=== PATIENT | male | born 1935 | race Caucasian/White ===

== ENCOUNTER 2021-12-02 07:20 | Emergency (ER) | payer MEDICARE, SELFPAY ==
--- NOTE | ~2021-12-02 | XR_ITS ---
EXAMINATION: CR X-RAY HAND AND WRIST LEFT CLINICAL INFORMATION: Left wrist pain status post fall. COMPARISON: None TECHNIQUE: 4 views of the left hand and wrist were obtained. Indicator arrow points to the fifth digit. FINDINGS: Mild to moderate interphalangeal, first carpal metacarpal and triscaphe degenerative joint changes are seen with hypertrophic changes seen most pronounced in the distal interphalangeal joint of the second digit as well as the proximal interphalangeal joint of the fifth digit. There is no overt acute fracture or dislocation. The carpal bones are normally aligned. The distal radius and ulna are intact with the soft tissues are unremarkable. XR/XR hand wrist LT IMPRESSION: [id number] degenerative joint changes most consistent with osteoarthritis. No overt acute fracture.
--- NOTE | ~2021-12-02 | CT_ITS ---
EXAMINATION: CT CERVICAL SPINE WITHOUT CONTRAST CLINICAL INFORMATION: Neck pain status post injury. COMPARISON: None TECHNIQUE: Multiple axial images of the cervical spine were obtained without the administration of intravenous contrast. Coronal and sagittal reformatted images were obtained. This CT examination was performed using dose optimization techniques as appropriate, variously including the following: *Automated exposure control *Adjustment of mA and/or kV according to patient size (this includes techniques or standardized protocols for targeted exams where dose is matched to indication/reason for exam; i.e. extremities or head) *Use of iterative reconstruction technique DLP: 315.81 mGy-cm FINDINGS: There is mild reversal the normal cervical lordosis with apex at C3-C4. Mild to moderate multilevel degenerative disc disease is seen most pronounced from C4-C5 to C6-C7. The vertebral bodies are intact. Mild multilevel bilateral neural foraminal narrowing is seen at these levels as well. Mild to moderate bilateral facet arthropathy is seen. The spinous processes are intact. The odontoid process is intact with moderate articular degenerative changes. The soft tissues are unremarkable. There is no lymphadenopathy. The thyroid gland is unremarkable. The visualized lung apices are clear. CT/CT cervical spine wo con IMPRESSION: 1. Mild reversal the normal cervical lordosis may be secondary to positioning, muscle spasm and/or multilevel degenerative changes. No definitive acute abnormality.
--- NOTE | ~2021-12-02 | XR_ITS ---
EXAMINATION: XR HAND, RIGHT CLINICAL INFORMATION: Right hand pain status post finger injury. COMPARISON: None TECHNIQUE: PA, lateral, and oblique views of the right hand. FINDINGS: Mild to moderate interphalangeal, fifth metacarpal phalangeal and first carpometacarpal degenerative joint changes are seen. Hypertrophic changes are seen most pronounced in the proximal interphalangeal joint of the first digit and first carpal metacarpal joint. There is an acute-appearing, nondisplaced fracture at the medial base of the distal phalanx of the fifth digit extending into the distal interphalangeal joint space. There is fragmentation of an osteophyte at the proximal interphalangeal joint with corticated appearance. The The soft tissues are unremarkable. XR/XR hand RT 2V IMPRESSION: 1. Acute, nondisplaced fracture at the base of the distal phalanx of the fifth digit as detailed above. 2. Degenerative joint changes most consistent with osteoarthritis and prominent hypertrophic changes at the proximal interphalangeal joint of the fifth digit. A fragmented osteophyte does not demonstrate acute features. Correlate with physical exam.
--- NOTE | ~2021-12-02 | CT_ITS ---
EXAMINATION: CT HEAD WITHOUT CONTRAST CLINICAL INFORMATION: Head injury. COMPARISON: None TECHNIQUE: Contiguous axial imaging was performed from the skull base to vertex without intravenous administration of contrast. Coronal and sagittal reformatted images were obtained. This CT examination was performed using dose optimization techniques as appropriate, variously including the following: *Automated exposure control *Adjustment of mA and/or kV according to patient size (this includes techniques or standardized protocols for targeted exams where dose is matched to indication/reason for exam; i.e. extremities or head) *Use of iterative reconstruction technique DLP: 732.23 mGy-cm FINDINGS: There is mild widening of the cortical sulci and associated ventriculomegaly. The lateral ventricles are symmetrical. The third and fourth ventricles are in their normal midline position. The basilar and prepontine cisterns are unremarkable. Incidental prominent posterior fossa CSF space dorsally. There is no acute intra or extracerebral abnormality. There is no mass effect or midline shift. Sections through the bony calvarium are unremarkable. The orbits are intact. The paranasal sinuses show mild mucosal thickening in the ethmoid sinuses bilaterally. The mastoid air cells are clear. Mild mid nasal septal deviation, apex the left with small apical spur. CT/CT head/brain wo con IMPRESSION: No acute intracranial pathology.
[2021-12-02 07:56] VITALS: BP 135/73; PULSE 74; RESP 16; TEMP 36.6; O2SAT 96; BMI 24.3
--- NOTE | 2021-12-02 08:04 | ED.GENADULT ---
HPI - General Adult General Chief complaint: Fall Stated complaint: Fall/L hand inj Time Seen by Provider: 12/02/21 07:55 Source: patient Mode of arrival: ambulatory Limitations: no limitations History of Present Illness HPI narrative: Patient is a 86 year old male presenting to the emergency department today with left wrist pain after a trip and fall incident. Patient states that he tripped over a piece of pipe sticking up from the ground and landed on his left hand, and scuffed his head. Patient denies any loss of consciousness from the incident. Patient denies any dizziness, lightheadedness, abdominal pain, nausea, vomiting, fever, chills, blurry vision, double vision, loss of vision, chest pain, difficulty breathing, shortness of breath, back pain, night sweats, pain with urination, increased urinary frequency, increased urinary urgency, blood in his urine or stool, syncope or a near syncopal episode, bowel incontinence, bladder incontinence, bowel retention, bladder retention, or any other complaints at this time. Onset (ago): minute(s) Location: face, left and upper extremity Radiation: non-radiation Severity: mild Severity scale (1-10): 2 Quality: dull Pain Consistency: constant Relieving factors: none Exacerbating factors: none Associated symptoms: denies other symptoms Treatments prior to arrival: none Related Data Allergies Allergy/AdvReac Type Severity Reaction Status Date / Time No Known Allergies Allergy Verified 12/02/21 08:01 Review of Systems Constitutional: Constitutional: Reports no additional constitutional complaints, Denies chills, Denies fever(s) and Denies night sweats Eyes: Eyes: Reports no additional eye complaints, Denies blurry vision, Denies change in vision, Denies diplopia, Denies eye discharge, Denies loss of vision and Denies eye pain ENT: Denies dizziness Cardiovascular: Cardiovascular: Reports no additional cardiovascular complaints, Denies chest pain, Denies lightheadedness, Denies Loss of Consciousness and Denies dyspnea Respiratory: Respiratory: Reports no additional respiratory complaints and Denies dyspnea Gastrointestinal: Gastrointestinal: Reports no additional gastrointestinal complaints, Denies abdominal pain, Denies melena, Denies hematochezia, Denies change in bowel habits and Denies change in stool character Genitourinary: Genitourinary: Reports no additional male genitourinary complaints, Denies hematuria, Denies oliguria, Denies difficulty urinating, Denies dysuria, Denies urinary frequency, Denies urinary hesitancy, Denies urinary incontinence and Denies urinary urgency Musculoskeletal: Musculoskeletal: Reports no additional musculoskeletal complaints, Denies numbness and Denies tingling Comments: right 5th finger pain Integumentary/Breasts: Comments: abrasions to the left hand Neurologic: Denies dizziness, Denies loss of vision, Denies numbness and Denies tingling Psychiatric: Psychiatric: Reports no additional psychiatric complaints Endocrine: Endocrine: Reports no additional endocrine complaints Hematologic/Lymphatic: Hematologic/Lymphatic: Reports no additional hematologic/lymphatic complaints Allergic/Immunologic: Allergic/Immunologic: Reports no additional allergic/immunologic complaints [facility] Past Medical History Attestation statement: The following information was validated with the patient. Source: old records reviewed Social History Social History Advance Directives: Yes Advance Directives Information Provided: Yes Advance Directives on File: No Physical Exam ED Vital Signs: Vital Signs - 24 hr 12/02/21 07:56 Temperature 97.8 F Pulse Rate 74 Respiratory Rate 16 Blood Pressure 135/73 Pulse Oximetry 96 Oxygen Delivery Method Room Air BMI result Body Mass Index 24.3 Const General: cooperative, no acute distress, alert and awake Nutritional Appearance: well nourished Orientation/consciousness: patient oriented x3 Limitations: no limitations HENMT Head: Yes normal to inspection and Yes atraumatic Ears: hearing grossly normal bilaterally and external ears normal General nose exam: Normal external nose present, no nasal discharge noted and no epistaxis Face and sinus: Yes normal facial exam, No abrasion and No laceration Mouth: Normal oral and palatal mucosa present, no drooling and no muffled voice Eyes General: appearance normal, both eyes and all related structures Periorbital: periorbital findings normal Eyelids: Yes eyelids normal Conjunctivae: conjunctivae normal Pupils: Equal, round and reactive pupils present EOM: EOMs intact bilaterally Neck Neck: Yes normal visual inspection, Yes full ROM and Yes no lymphadenopathy Chest Chest palpation & inspection: normal inspection of the chest Resp Effort & Inspection: normal respiratory effort and able to speak in complete sentences Auscultation: clear to auscultation bilaterally Cardio Rate: regular rate Rhythm: regular rhythm GI Inspection: Yes normal to inspection Skin Other: multiple abrasions to the left hand but on the dorsal and palmar aspects of his left hand, no open areas, no active bleeding Neuro General: patient oriented x3 and moves all extremities Cranial nerves: Yes Equal, round and reactive pupils present Cognition (Neuro): normal cognition Motor exam (neuro): 5/5 motor strength present throughout Sensory Exam: Normal double simultaneous stimulation for sensation Coordination: [id number] test normal Extrem Other: mild bruising and pain to the right 5th finger General: Yes full ROM and Yes capillary refill normal Psych Appearance: grossly normal Mental Status: mental status grossly normal Affect: normal affect Attitude: cooperative Thought process: Normal thought process present Thought content: Normal thought content present Insight: Good insight present (Psych) Procedures Orthopedic Splinting/Casting Injury #1: Side: right Upper Extremity Injury Location: finger (5th) Upper Extremity Immobilizer: aluminum form splint, finger (other) and freddie tape Medical Decision Making MDM Narrative Medical decision making narrative: Patient is an 86 year old male presenting to the emergency department today with left hand pain and right 5th finger pain. Patient's physical exam was as listed earlier in this chart with multiple abrasions to the left hand and minimal bruising to the right 5th finger. Patient's left hand and wrist x-rays showed no acute process. Patient's right hand XR showed an acute fracture of the 5th finger. Patient's head and neck CTs had no acute process. I explained my physical exam findings as well as all test results to the patient. I answered all questions asked by the patient. Patient was brought up to date on tetanus and his right 5th finger was splinted, without incident. I stressed the importance of the patient taking his medication as prescribed. I stressed the importance of the patient following up with his primary care provider and an orthopedic provider. I stressed the importance of the patient returning to the emergency department immediately if his symptoms were to worsen or if he were to develop any dizziness, shortness of breath, difficulty breathing, chest pain, blurry vision, loss of vision, nausea, vomiting, abdominal pain, fever, chills, back pain, or any other complaints. Patient verbalized agreement and understanding with this treatment plan and discharge. Differential Diagnosis Differential Diagnosis: Right 5th finger fracture, fall Medical Records Medical records reviewed: Yes I reviewed the patient's medical records. Imaging Data CT C-Spine: My impression: No acute process. Radiologist's impression: EXAMINATION: CT CERVICAL SPINE WITHOUT CONTRAST CLINICAL INFORMATION: Neck pain status post injury.? COMPARISON: None? TECHNIQUE: Multiple axial images of the cervical spine were obtained without the administration of intravenous contrast. Coronal and sagittal reformatted images were obtained.? This CT examination was performed using dose optimization techniques as appropriate, variously including the following: *Automated exposure control *Adjustment of mA and/or kV according to patient size (this includes techniques or standardized protocols for targeted exams where dose is matched to indication/reason for exam; i.e. extremities or head) *Use of iterative reconstruction technique DLP: 315.81 mGy-cm FINDINGS: There is mild reversal the normal cervical lordosis with apex at C3-C4. Mild to moderate multilevel degenerative disc disease is seen most pronounced from C4-C5 to C6-C7. The vertebral bodies are intact. Mild multilevel bilateral neural foraminal narrowing is seen at these levels as well. Mild to moderate bilateral facet arthropathy is seen. The spinous processes are intact. The odontoid process is intact with moderate articular degenerative changes. The soft tissues are unremarkable. There is no lymphadenopathy. The thyroid gland is unremarkable. The visualized lung apices are clear. CT/CT cervical spine wo con IMPRESSION: 1. Mild reversal the normal cervical lordosis may be secondary to positioning, muscle spasm and/or multilevel degenerative changes. No definitive acute abnormality. Dictated By: Preet Puri MD Signed By: Electronically signed by Preet Puri MD 12/02/[address] scan - head: Attestation: I personally reviewed and interpreted this imaging study as follows: My impression: No acute process. Radiologist's impression: EXAMINATION: CT HEAD WITHOUT CONTRAST CLINICAL INFORMATION: Head injury.? COMPARISON: None TECHNIQUE: Contiguous axial imaging was performed from the skull base to vertex without intravenous administration of contrast. Coronal and sagittal reformatted images were obtained. This CT examination was performed using dose optimization techniques as appropriate, variously including the following: *Automated exposure control *Adjustment of mA and/or kV according to patient size (this includes techniques or standardized protocols for targeted exams where dose is matched to indication/reason for exam; i.e. extremities or head) *Use of iterative reconstruction technique DLP: 732.23 mGy-cm FINDINGS: There is mild widening of the cortical sulci and associated ventriculomegaly. The lateral ventricles are symmetrical. The third and fourth ventricles are in their normal midline position. The basilar and prepontine cisterns are unremarkable. Incidental prominent posterior fossa CSF space dorsally. There is no acute intra or extracerebral abnormality. There is no mass effect or midline shift. Sections through the bony calvarium are unremarkable. The orbits are intact. The paranasal sinuses show mild mucosal thickening in the ethmoid sinuses bilaterally. The mastoid air cells are clear. Mild mid nasal septal deviation, apex the left with small apical spur. CT/CT head/brain wo con IMPRESSION: No acute intracranial pathology. Dictated By: Preet Puri MD Signed By: Electronically signed by Preet Puri MD 12/02/21 0906 Left hand and wrist X-ray: Attestation: I personally reviewed and interpreted this imaging study as follows: My impression: No acute process. Radiologist's impression: EXAMINATION: CR X-RAY HAND AND WRIST LEFT CLINICAL INFORMATION: Left wrist pain status post fall.? COMPARISON: None? TECHNIQUE: 4 views of the left hand and wrist were obtained. Indicator arrow points to the fifth digit. FINDINGS: Mild to moderate interphalangeal, first carpal metacarpal and triscaphe degenerative joint changes are seen with hypertrophic changes seen most pronounced in the distal interphalangeal joint of the second digit as well as the proximal interphalangeal joint of the fifth digit.? There is no overt acute fracture or dislocation. The carpal bones are normally aligned. The distal radius and ulna are intact with the soft tissues are unremarkable. XR/XR hand wrist LT IMPRESSION: [id number] degenerative joint changes most consistent with osteoarthritis. No overt acute fracture. Dictated By: Preet Puri MD Signed By: Electronically signed by Preet Puri MD 12/02/21 0850 Right hand x-ray: Attestation: I personally reviewed and interpreted this imaging study as follows: My impression: Acute fracture of the 5th finger. Radiologist's impression: EXAMINATION: XR HAND, RIGHT CLINICAL INFORMATION: Right hand pain status post finger injury.? COMPARISON: None? TECHNIQUE: PA, lateral, and oblique views of the right hand. FINDINGS: Mild to moderate interphalangeal, fifth metacarpal phalangeal and first carpometacarpal degenerative joint changes are seen. Hypertrophic changes are seen most pronounced in the proximal interphalangeal joint of the first digit and first carpal metacarpal joint. There is an acute-appearing, nondisplaced fracture at the medial base of the distal phalanx of the fifth digit extending into the distal interphalangeal joint space. There is fragmentation of an osteophyte at the proximal interphalangeal joint with corticated appearance. The The soft tissues are unremarkable. XR/XR hand RT 2V IMPRESSION: 1. Acute, nondisplaced fracture at the base of the distal phalanx of the fifth digit as detailed above. 2. Degenerative joint changes most consistent with osteoarthritis and prominent hypertrophic changes at the proximal interphalangeal joint of the fifth digit. A fragmented osteophyte does not demonstrate acute features. Correlate with physical exam. Dictated By: Preet Puri MD Signed By: Electronically signed by Preet Puri MD 12/02/21 1203 Discharge Plan Discharge Clinical Impression: Fall Patient Disposition: Home, Self-Care Instructions: Finger Fracture (ED), Fall Prevention (ED) Additional Instructions: Follow up with your primary care provider. Return to the emergency department immediately if your symptoms worsen or if you develop any dizziness, shortness of breath, difficulty breathing, chest pain, blurry vision, loss of vision, nausea, vomiting, abdominal pain, fever, chills, back pain, or any other complaints. Referrals: [facility] [Provider Group] Adiel Vasquez MD [Primary Care Provider] - Interventions: ED Discharge Assessment Last Done: 12/02/21 10:54 Discharge Date/Time: 12/02/21 10:55 Print Language: Greek
[2021-12-02] MEDS: Diphth,Pertus(ACell),Tet Adult 0.5 ML SYRINGE IM (10:42)
== END 2021-12-02 10:55 | disposition home or self-care (01) ==
PROVIDERS: Emergency Provider Emergency Medicine; PCP Internal Medicine
DX: S62.666A Nondisplaced fracture of distal phalanx of right little finger, initial encounter for closed fracture (principal); S60.512A Abrasion of left hand, initial encounter; W18.09XA Striking against other object with subsequent fall, initial encounter; Y93.01 Activity, walking, marching and hiking; Y92.480 Sidewalk as the place of occurrence of the external cause; Y99.9 Unspecified external cause status
CPT/HCPCS: 29130; 70450; 72125; 73110; 73120; 73130; 90471; 90715; 99283; 99284

== ENCOUNTER 2021-12-16 07:53 | Outpatient (REF) | payer MEDICARE, SELFPAY ==
--- NOTE | ~2021-12-16 | XR_ITS ---
EXAMINATION: XR HAND, RIGHT CLINICAL INFORMATION: Pain in right hand. COMPARISON: None TECHNIQUE: PA, lateral, and oblique views of the right hand. FINDINGS: There is loss of joint space with periarticular spurring of the PIP and DIP all digits. There is minimal flexion deformities of DIP joints 3rd through 5th digits. There is a small non-displaced fracture involving an osteophyte of the PIP joint of the 5th digit. There is severe degenerative spurring and there are arthritic changes. Mild soft tissue swelling is seen along the PIP and DIP joints. Also visualized is loss of the 1st carpometacarpal joint space. XR/XR hand RT min 3V IMPRESSION: Advanced degenerative osteoarthritic changes of the PIP and DIP joints of the 1st carpometacarpal joint. There is a small nondisplaced fracture involving an osteophyte of the PIP joint, 5th digit.
== END 2021-12-16 07:54 | disposition home or self-care (01) ==
LOC: HO.HOSX 07:53
PROVIDERS: Visit Provider Physician Assistant
DX: S61.214A Laceration without foreign body of right ring finger without damage to nail, initial encounter (principal)
CPT/HCPCS: 73130; 99202

== ENCOUNTER 2024-09-16 10:48 | Outpatient (AMB) | payer MEDICARE, SELFPAY ==
--- NOTE | 2024-09-16 10:49 | MHC.PC.OV ---
Vital Signs 09/16/24 10:53 Height 5 ft 8 in Weight 163 lb BMI 24.8 BP 142/70 H Respiration 16 Pulse 86 Pulse Source Pulse Oximeter Temp 97.6 F Temp Source Temporal Artery Scan Pulse Oximetry (%) 97 Oxygen Delivery Method Room Air Intake Visit Reasons: establish care Spinning Machine Operator Required: No Accompanied by: Self / Same As Patient Allergies No Known Allergies Allergy (Verified 09/16/24 11:27) Medication List - Last Reconciled 09/16/24 by Wm Metz MD atorvastatin 20 mg PO DAILY diltiazem HCl CD 120 mg PO DAILY famotidine 20 mg PO BID finasteride 5 mg PO DAILY gabapentin mg PO loratadine (Allergy Relief (loratadine)) 10 mg PO BID riboflavin (vitamin B2) 400 mg PO DAILY tamsulosin 0.8 mg PO DAILY Tobacco use date assessed: 09/16/24 Fall risk assessment: No Falls in past year Last assessed Fall Risk: 09/16/24 Dental Screening Dental Screen Date: 09/16/24 Did you have a dental visit in the last 12 months?: Yes Did you have a dental problem in the last 6 months where you did not have access to dental care?: No Was dental information given to patient?: Patient has dentist [facility] Medical History (Updated 09/16/24 @ 11:26 by Wm Metz MD) Hyperlipidemia Arthritis Family History (Updated 09/16/24 @ 11:00 by REINA Dasilva) Father Heart attack Mother Deaf Arthritis Social History (Updated 09/16/24 @ 11:00 by REINA Dasilva) Housing: Apartment Alcohol intake: current Alcohol intake frequency: holidays/special occasions only Patient Tobacco Use Status: Never used Tobacco service: No Current occupational status: retired Cognitive needs: No Hearing needs: Yes (b/l hearing aids) Vision needs: Yes (rx glasses) Questionnaire PHQ-9 Over the last 2 weeks, how often have you been bothered by any of the following problems? 1. Little interest or pleasure in doing things: not at all 2. Feeling down, depressed, or hopeless: not at all 3. Trouble falling or staying asleep, or sleeping too much: not at all 4. Feeling tired or having little energy: not at all 5. Poor appetite or overeating: not at all 6. Feeling bad about yourself - or that you are a failure or have let yourself or your family down: not at all 7. Trouble concentrating on things, such as reading the newspaper or watching television: not at all 8. Moving or speaking so slowly that other people could have noticed. Or the opposite - being so fidgety or restless that you have been moving around a lot more than usual: not at all 9. Thoughts that you would be better off or of hurting yourself in some way: not at all Total score: 0 Depression Screening Interpretation: Negative Depression Screening Done: Yes Source: Developed by Drs. Ananda Marie, Teresa Macias, Montana Aguirre and colleagues, with an educational marco antonio from [employer]. Thrive Questionnaire Date Thrive assessed: 09/16/24 I am a: Patient What is your living situation today?: I have a steady place to live Within the past 12 months, did the food you bought not last and you didn't have the money to get more?: Never true Within the past 12 months, did you worry whether your food would run out before you got money to buy more?: Never true Do you have trouble paying for medicines?: No Do you have trouble getting transportation to medical appointments?: No Do you have trouble paying your heating and electricity bill?: No Do you have trouble taking care of your child, family member or friend?: No Do you have trouble with day-to-day activities such as bathing, preparing meals, shopping, managing finances, etc.?: No Are you currently unemployed and looking for a job?: No Are you interested in more education?: No Please select the resources that you would like help with: None Currently or been in a relationship where the following occur: No concerns reported THRIVE Score: 0 AUDIT C Alcohol Use Questionnaire (AUDIT-C) 1. How often do you have a drink containing alcohol?: Monthly or less 2. How many drinks containing alcohol do you have on a typical day when you are drinking?: 1 or 2 3. How often do you have six or more drinks on one occasion?: Never Total Score: 1 ABDULAZIZ-7 AMB Questionnaire ABDULAZIZ-7 Date ABDULAZIZ - 7 assessed: 09/16/24 Feeling nervous, anxious, or on edge: 0 = Not at all Not being able to stop or control worryin = Not at all Worrying too much about different things: 0 = Not at all Trouble relaxin = Not at all Being so restless that it is hard to sit still: 0 = Not at all Becoming easily annoyed or irritable: 0 = Not at all Feeling afraid as if something awful might happen: 0 = Not at all Total ABDULAZIZ-7 score (0-4 normal; 5-9 mild; 10-14 moderate; 15-21 severe): 0 Source: Developed by Drs. Ananda Marie, Teresa Macias, Montana Aguirre and colleagues, with an educational marco antonio from [employer]. Physical exam (Primary Care) Vital Signs: Last Vital Signs Temp 97.6 F 09/16/24 10:53 Pulse 86 09/16/24 10:53 Resp 16 09/16/24 10:53 BP 142/70 H 09/16/24 10:53 Pulse Ox 97 09/16/24 10:53 Oxygen Delivery Method Room Air 09/16/24 10:53 BMI result Body Mass Index 24.8 Tobacco/Smoking Status: Tobacco use Status Tobacco use date assessed 09/16/24 09/16/24 10:53 Patient Tobacco Use Status Never used Tobacco 09/16/24 11:03 PHQ-9: PHQ-9 Score PHQ-9: Total score 0 09/16/24 10:53 Depression Screening Interpretation: Negative Thrive Assessment: Date of Thrive Assessment Date Thrive assessed 09/16/24 09/16/24 10:53 Currently or been in a relationship where the following occur: No concerns reported Advance Care Planning discussion: Exists, not on file Date of discussion: 09/16/24 Who was present: Patient Forms completed: Health Care Proxy and MOLST Time spent: 1-15 minutes, not on file Coding Level of Care Code New Pt Level 4 (86741) Complex EM visit Add On G2211 Diagnoses Hyperlipidemia E78.5 Additional Codes Vital Signs *Quality* - Advance Care Planning discussion: Exists, not on file ([id number]) Vital Signs *Quality* - Time spent: 1-15 minutes, not on file ([id number]) Assessment & Plan Assessment & Plan (1) Hyperlipidemia: Code(s): E78.5 - Hyperlipidemia, unspecified Category: Medical Plan: BW has been ordered. Will call with results Plan History of Present Illness The patient is an 89-year-old male presenting with concern related to a prior minor injury. Approximately one year ago, he sustained an injury believed to be an avulsion fracture, though he was uncertain as it never felt like a fracture. He reported ongoing mild pain and swelling, but chose not to seek medical treatment after his self-evaluation suggested no breakage. No alterations in symptoms or new treatments have occurred since, and he did not note any specific triggers or relief methods for the existing minor symptoms. Social History - The patient lives in a small apartment within his daughter's house, allowing for frequent contact with family. 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 - The patient drives and is capable of driving at night. Review of Systems - Musculoskeletal: Reports mild pain and swelling from a past injury. - General: Reports sleeping well and consistently. - Psychological: Denies any significant concerns or symptoms. Physical Exam General: Cooperative and healthy appearing Nutritional Appearance: Well nourished Orientation/consciousness: Patient oriented x3 Limitations: No limitations Head: Normal to inspection General: Appearance normal, both eyes and all related structures Neck: Normal visual inspection Chest: Normal palpation of entire chest wall Respiratory: N ormal respiratory effort Neurology: Patient oriented x3, drives at night Results Plan I plan to acquire the patient's previous medical records from Dr. Vasquez for completeness of his health profile with my practice. Common blood tests are ordered, with patient-directed details on accessing the lab facilities. No immediate interventions regarding the prior injury are anticipated due to the lack of new symptoms or changes. Reviewing and possibly updating advanced care planning documents has been advised. The patient is scheduled for re-evaluation in six months or sooner if any concerns develop. Patient was informed and verbally consented to the use of an ambient scribe for clinic note documentation during this visit. Discussion Notes I discussed with the patient the process of obtaining his medical records from his previous physician, Dr. Vasquez, to ensure a comprehensive understanding of his medical history, as prescribed treatments and follow-ups will be based on this information. The patient was advised to undergo routine blood work and was provided with specific instructions on where he can complete this test for ease of access. We reviewed options for updating his existing advanced care directive documents, emphasizing the importance of having such plans accurately reflect his current wishes. All future appointments and laboratory testing were coordinated to suit his convenience, acknowledging the facilities and transportation issues raised. Anticipatory guidance was given regarding the mild symptoms from his past injury, with a follow-up scheduled in six months, or any time sooner should his condition change. Patient Instructions - Obtain blood work at your convenience at either the hospital or the walk-in clinic with the lab on [address]. - Contact us if you notice any changes in symptoms or have new concerns. - Review and update your healthcare proxy or living will documents if needed. - Plan to attend a follow-up appointment in six months. - For any immediate concerns regarding your symptoms, please seek medical attention sooner. Orders: Orders Complete Blood Count no Diff Today E78.5 - Hyperlipidemia, unspecified Lipid Panel Today E78.5 - Hyperlipidemia, unspecified Liver Panel Today E78.5 - Hyperlipidemia, unspecified Thyroid Stimulating Hormone Today E78.5 - Hyperlipidemia, unspecified Basic Metabolic Panel Today E78.5 - Hyperlipidemia, unspecified UA and rflx microscopic Today E78.5 - Hyperlipidemia, unspecified
[2024-09-16 10:53] VITALS: BP 142/70; PULSE 86; RESP 16; TEMP 36.4; O2SAT 97; BMI 24.8
--- OUTSIDE RECORDS SUMMARY | 2024-09-16 12:48 | XMS_ITS | Encounter Summary ---
Author Organization [facility] Address [address] [place] [address] Phone Care Team Providers Care Pump House Technician Name Role Phone Adiel Vasquez MD Primary Care Provider [phone] Encounter Details Date Type Department Care Team (Late st Contact Info) Description 12/05/2022 Documentation Only [facility] [place], [address] [place] [address] Carlos Cherry MD [address] [place] [address] Social History Tobacco Use Types Packs/Day Years Used Date Smoking Tobacco: Never Alcohol Use Standard Drinks/Week Comments Yes 0 (1 standard drink = 0.6 oz pure alcohol) Alcoholic Drinks/day: 1-2 drinks per day Sex and Gender Information Value Date Recorded Sex Assigned at Not on file Legal Sex Male 4:36 PM EST Gender Identity Not on file Sexual Orientation Not on file documented as of this encounter Plan of Treatment Not on file documented as of this encounter Visit Diagnoses Not on filedocumented in this encounter Care Teams Pump House Technician Relationship Specialty Start Date End Date Adiel Vasquez MD [facility] [employer] [address] [place] [address] [address] [place] PCP - General 04/01/19 documented as of this encounter
--- OUTSIDE RECORDS SUMMARY | 2024-09-16 12:48 | XMS_ITS | Clinical Summary ---
Author Organization [facility], Address [address] [facility] [place] [address] [place] [address] Phone Care Team Providers Care Compliance Project Manager Name Role Phone Adiel Vasquez MD Primary Care Provider [phone] Allergies Active Allergy Reactions Criticality Noted Date Comments Dust Mite Extract 06/15/2022 Ketotifen Fumarate Other (see comments) 021 Medications atorvastatin (LIPITOR) 20 MG tablet Take 1 tablet by mouth 1 (one) time each day 07/31/2016 Active dilTIAZem (Cardizem) 120 MG immediate release tablet Take 1 tablet by mouth 1 (one) time each day Active finasteride (PROSCAR) 5 MG tablet Take 1 tablet by mouth 1 (one) time each day 12/21/2016 Active loratadine (CLARITIN) 10 MG tablet Take 1 tablet by mouth 1 (one) time each day 11/06/2016 Active Active Problems Problem Noted Date Diagnosed Date Vitamin D deficiency due to chronic kidney disea se 06/20/2022 Essential (primary) hypertension 11/18/2019 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/17/2019 Hyperkalemia 11/17/2019 Immunizations Immunization Administration Dates Next Due Influenza Split High Dose Preservative Free IM 1 07/01/2018 Family History Medical History Relation Comments Heart disease Father 2 CAD Relation Status Comments Father 1 Father 2 Social History Tobacco Use Types Packs/Day Years Used Date Smoking Tobacco: Never Alcohol Use Standard Drinks/Week Comments Yes 0 (1 standard drink = 0.6 oz pure alcohol) Alcoholic Drinks/day: 1-2 drinks per day Sex and Gender Information Value Date Recorded Sex Assigned at Not on file Legal Sex Male 4:36 PM EST Gender Identity Not on file Sexual Orientation Not on file Last Filed Vital Signs Vital Sign Reading Time Taken Comments Blood Pressure 118/65 09/05/2018 12:00 PM EDT Pulse 74 09/05/2018 12:00 PM EDT Temperature - - Respiratory Rate 16 09/05/2018 12:00 PM EDT Oxygen Saturation - - Inhaled Oxygen Concentration - - Weight 79.8 kg (176 lb) 09/05/2018 12:00 PM EDT Height 173.5 cm (5' 8.31 ) 09/05/2018 12:00 PM E DT Body Mass Index 26.52 09/05/2018 12:00 PM EDT Plan of Treatment Health Maintenance Due Date Last Done Comments Influenza Vaccine (Season Ended) 2025 03/03/2020, 02/26/2020, 02/20/2020, Additional history exists Pneumococcal Vaccine: 50+ Years Completed 09/07/2014, 07/23/2010 Pneumococcal Vaccine: Peds (0 to 5 Years) and At-Risk Patients (6 to 49 Years) Discontinued 09/07/2014, 07/23/2010 Hepatitis B Vaccine Aged Out No longe r eligible based on patient's age to complete this topic Insurance [facility] Care Teams Compliance Project Manager Relationship Specialty Start Date End Date Adiel Vasquez MD [employer] DEMONSTRATOR [address] [place] [address] [place] PCP - General 04/01/19
--- OUTSIDE RECORDS SUMMARY | 2024-09-16 12:48 | XMS_ITS | Encounter Summary ---
Author Organization [facility] Address [address] [place] [address] Phone Care Team Providers Care Mark Up Designer Name Role Phone Adiel Vasquez MD Primary Care Provider [phone] Encounter Details Date Type Department Care Team (Late st Contact Info) Description 12/18/2023 Documentation Only [facility] [place], [address] [place] [address] Sharri Marin [address] [place] [address] Social History Tobacco Use Types Packs/Day Years [...] on filedocumented in this encounter Care Teams Mark Up Designer Relationship Specialty Start Date End Date Adiel Vasquez MD [employer] [address] [place] [address] PCP - General 04/01/19 documented as of this encounter
== END 2024-09-16 11:21 | disposition home or self-care (01) ==
LOC: HO.HMCSH 10:48
PROVIDERS: PCP Internal Medicine; Visit Provider Internal Medicine
DX: E78.5 Hyperlipidemia, unspecified (principal); Z00.00 Encounter for general adult medical examination without abnormal findings

== ENCOUNTER → 2024-09-16 10:48 | Outpatient (BNVA) | payer MEDICARE, SELFPAY | PROVIDERS: PCP Internal Medicine; Visit Provider Internal Medicine | DX: E78.5 Hyperlipidemia, unspecified (principal) | CPT/HCPCS: 96127; 99202 ==

== ENCOUNTER 2024-09-18 07:58 | Outpatient (REF) | payer MEDICARE, SELFPAY ==
--- OUTSIDE RECORDS SUMMARY | 2024-09-18 08:04 | XMS_ITS | Encounter Summary ---
Author Organization [facility] Address [address] [place] [address] Phone Care Team Providers Care Supervisor Photostat Name Role Phone Adiel Vasquez MD Primary Care Provider [phone] Encounter Details Date Type Department Care Team (Late st Contact Info) Description 12/18/2023 Documentation Only [facility] [place], [address] [place] [address] Sharri Marin [address] [place] [address] Social History Tobacco Use Types [...] on filedocumented in this encounter Care Teams Supervisor Photostat Relationship Specialty Start Date End Date Adiel Vasquez MD [facility] [address] [place] [address] PCP - General 04/01/19 documented as of this encounter
--- OUTSIDE RECORDS SUMMARY | 2024-09-18 08:04 | XMS_ITS | Clinical Summary ---
Author Organization [facility], Address [address] [facility] [address] [place] [address] Phone Care Team Providers Care Authorization Rep Name Role Phone Adiel Vasquez MD Primary Care Provider [phone] Allergies Active Allergy Reactions Criticality Noted Date [...] patient's age to complete this topic Insurance [facility] Care Teams Authorization Rep Relationship Specialty Start Date End Date Adiel Vasquez MD [employer]CH[employer]ECT [address] [place] [address] [place] PCP - General 04/01/19
--- OUTSIDE RECORDS SUMMARY | 2024-09-18 08:04 | XMS_ITS | Encounter Summary ---
Author Organization [facility] Address [address] [place] [address] Phone Care Team Providers Care Drapery Hand Name Role Phone Adiel Vasquez MD Primary Care Provider [phone] Encounter Details Date Type Department Care Team (Late st Contact Info) Description 12/05/2022 Documentation Only [facility] [place], [address] [place] [address] Carlos Cherry MD [address] [place] [address] Social History Tobacco Use Types [...] on filedocumented in this encounter Care Teams Drapery Hand Relationship Specialty Start Date End Date Adiel Vasquez MD [employer] COORDINATOR [address] [place] [address] [address] [place] PCP - General 04/01/19 documented as of this encounter
[2024-09-18 11:28] LABS: Hematocrit 42.3 % (42.0-52.0); Mean Corpuscular HGB Conc 33.1 g/dl (31.0-36.0); Mean Corpuscular Hemoglobin 32.7 pg (27.0-33.0); Mean Corpuscular Volume 98.8 fL (80.0-98.0); Mean Platelet Volume 10.7 fL (9.4-12.4); Platelet Count 302 X10*3/uL (160-400); Red Blood Count 4.28 X10*6/uL (4.60-5.80); Red Cell Distribution Width 13.4 % (11.0-16.0); White Blood Count 5.9 X10*3/uL (4.8-10.8)
[2024-09-18 11:39] LABS: Appearance Urine Clear; Color Urine Dark Yellow; Glucose Urine UA Negative (Negative); Leukocyte Esterase Urine Moderate (2+) (Negative); Nitrite Urine Negative (Negative); UMIC TRIGGER UA YES; Urine Blood Negative (Negative); Urine Ketones Trace mg/dL (Negative); Urine Protein Negative (Neg-Trace)
[2024-09-18 11:44] LABS: Bacteria Urine 3+ (None Seen); Hyaline Casts Urine 0-2 /LPF (0-2); RBC Urine 0-2 /HPF (0-2)
[2024-09-18 11:57] LABS: Alanine Aminotransferase 20 U/L (0-40); Albumin Level 4.1 g/dL (3.5-5.0); Alkaline Phosphatase 53 U/L (39-117); Anion Gap 12 (12-20); Aspartate Amino Transferase 34 U/L (5-37); Bilirubin Direct 0.2 mg/dL (0.0-0.5); Bilirubin Total 0.3 mg/dL (0.0-1.0); Blood Urea Nitrogen 28 mg/dL (9-16); Calcium 9.4 mg/dL (8.4-10.2); Carbon Dioxide 27 mmol/L (22-29); Chloride 109 mmol/L (96-108); Cholesterol 181 mg/dL (<200); Estimated Glomerular Filt Rate 36; Glucose Random 106 mg/dL (60-115); HDL Cholesterol 51 mg/dL (>40); LDL Cholesterol Calculated 109 mg/dL (<100); Potassium 4.6 mmol/L (3.3-5.1); Sodium 143 mmol/L (135-145); Total Protein 7.1 g/dL (6.5-8.0); Triglycerides 109 mg/dL (<150)
[2024-09-18 12:00] LABS: Thyroid Stimulating Hormone 2.41 uIU/mL (0.32-4.0)
== END 2024-09-18 07:59 | disposition home or self-care (01) ==
LOC: HO.WFDLDS 07:58
PROVIDERS: Visit Provider Internal Medicine
DX: E78.5 Hyperlipidemia, unspecified (principal)
CPT/HCPCS: 36415; 80048; 80061; 80076; 81001; 84443; 85027

== ENCOUNTER 2024-12-23 10:07 | Outpatient (REF) | payer MEDICARE, SELFPAY ==
--- OUTSIDE RECORDS SUMMARY | 2024-12-23 10:52 | XMS_ITS | Encounter Summary ---
Author Organization [facility] [place], Address [address] [place] [address] Phone Care Team Providers Care Environmental Monitoring Technician Name Role Phone Leah Noriega MD Primary Care Provider [phone] Encounter Details Date Type Department Care Team (Late st Contact Info) Description 12/16/2024 Office Communication [facility] [place], - [address] [place] [phone] Carlos Cherry MD [address] [place] [address] Social History Tobacco Use Types Packs/Day Years [...] on filedocumented in this encounter Care Teams Environmental Monitoring Technician Relationship Specialty Start Date End Date Leah Noriega MD [address] [place] [address] PCP - General Internal Medicine 12/16/24 documented as of this encounter
[2024-12-23 12:10] LABS: Anion Gap 12 (12-20); Blood Urea Nitrogen 18 mg/dL (9-16); Calcium 9.0 mg/dL (8.4-10.2); Carbon Dioxide 27 mmol/L (22-29); Chloride 105 mmol/L (96-108); Estimated Glomerular Filt Rate 29; Parathyroid Hormone Intact 143.2 pg/mL (8.7-77.1); Potassium 5.2 mmol/L (3.3-5.1); Sodium 139 mmol/L (135-145)
[2024-12-23 14:38] LABS: Microalbum/Creatinine Ratio Ur 11.0 ug/mg cr (<30)
== END 2024-12-23 10:08 | disposition home or self-care (01) ==
LOC: HO.WFDLDS 10:07
PROVIDERS: Visit Provider Internal Medicine Nephrology
DX: E78.5 Hyperlipidemia, unspecified (principal); N18.32 Chronic kidney disease, stage 3b; E55.9 Vitamin D deficiency, unspecified
CPT/HCPCS: 36415; 80051; 82043; 82306; 82310; 82565; 82570; 83970; 84520

== ENCOUNTER 2025-01-20 09:33 | Outpatient (REF) | payer MEDICARE, SELFPAY ==
--- NOTE | ~2025-01-20 | XR_ITS ---
EXAMINATION: XR CERVICAL SPINE CLINICAL INFORMATION: M54.2 - Cervicalgia COMPARISON: CT cervical spine 12/02/2021. TECHNIQUE: 4 views of the cervical spine were obtained. FINDINGS: There is no significant scoliosis. There is reversal of the normal lordosis with focal kyphosis at C4. There is no perceptible fracture, or compression deformity. No suspicious bone lesion. 2 mm degenerative anterolisthesis of C2 on C3 and C3 on C4. Mild degenerative retrolisthesis C4 on C5. Craniocervical junction is intact. C1-2 articulation is maintained with degenerative changes present. There is advanced multilevel facet arthrosis bilaterally. There is moderate disc degeneration throughout. There are bulky ventral disc osteophytes spanning C3-C7. Mild multilevel neural foraminal narrowing on the right. Moderate left neural foraminal narrowing at C2-3 and C3-4. There is no prevertebral soft tissue swelling or abnormality. Imaged lung apices are clear. XR/XR cervical spine 4V IMPRESSION: 1. No definite acute abnormality of the cervical spine. 2. Advanced multilevel cervical spondylosis. Focal kyphosis centered at C4. Electronically signed by: Stefan Nesbitt MD 01/20/2025 10:31 AM EDT
== END 2025-01-20 09:34 | disposition home or self-care (01) ==
LOC: HO.HMGCX 09:33
PROVIDERS: PCP Internal Medicine; Visit Provider Physician Assistant
DX: M54.2 Cervicalgia (principal)
CPT/HCPCS: 72050; 99212

== ENCOUNTER 2025-01-20 09:33 | Outpatient (AMB) | payer MEDICARE, SELFPAY ==
[2025-01-20 09:41] VITALS: BP 102/50; PULSE 85; TEMP 36.7; O2SAT 96; BMI 24.6
--- NOTE | 2025-01-20 09:41 | MHC.OFFWIV ---
Intake Vital Signs 01/20/25 09:41 Height 5 ft 8 in Weight 162 lb BMI 24.6 BP 102/50 L Blood Pressure Location Lt brachial Position Sitting Pulse 85 Pulse Source Pulse Oximeter Temp 98.0 F Temp Source Oral Pulse Oximetry (%) 96 Oxygen Delivery Method Room Air Intake Visit Reasons: ep spinal misalignment Intake Note: pt presents with concern for spine misalignment- he states that his head sometimes seems to drop down and when straightening neck he experiences discomfort. his masseuse expressed concern. Patient Tobacco Use Status: Never used Tobacco Allergies No Known Allergies Allergy (Verified 01/20/25 09:45) Do you need a note to return to daycare/school/sports/work: No HPI HPI Comments History of Present Illness Details This is an 89-year-old male presenting for evaluation of discomfort on the right side of his neck that he has had for the past 3 months. Patient states that he sought therapy with a massage therapist approximately 3 weeks ago and has had 4 massages in the past 3 weeks. The patient states the massage therapist was concerned that he may have a ?misalignment? in his cervical spine. Patient denies any injury or trauma preceding the onset of his discomfort. He also denies any radiation of discomfort into his right upper extremity, right arm weakness, tingling or numbness in his right arm or back pain. Patient has not taken any medication for treatment of his discomfort. ?Today there is no pain. I feel fine.? [facility] Medical History (Updated 01/20/25 @ 10:55 by Sis Vásquez PA-C) Hyperlipidemia Arthritis Family History (Updated 09/16/24 @ 11:00 by REINA Dasilva) Father Heart attack Mother Deaf Arthritis Social History (Updated 09/16/24 @ 11:00 by REINA Dasilva) Housing: Apartment Alcohol intake: current Alcohol intake frequency: holidays/special occasions only Patient Tobacco Use Status: Never used Tobacco service: No Current occupational status: retired Cognitive needs: No Hearing needs: Yes (b/l hearing aids) Vision needs: Yes (rx glasses) Review of Systems Const All systems reviewed & are unremarkable except as noted in HPI and below Reports no additional complaints, Denies frequent falls, Denies headache(s) and Denies weakness ENT Denies dizziness, Denies headache(s) and Reports neck pain Musc Reports no additional complaints, Reports neck pain, Denies numbness, Denies radiating pain into limb, Denies stiffness and Denies tingling Skin/Breast Reports system reviewed and no additional complaints, except as documented Neuro Reports no additional complaints, Denies confusion, Denies dizziness, Denies frequent falls, Denies headache(s), Denies focal weakness, Denies numbness, Denies tingling and Denies weakness Psych Reports no additional complaints and Denies confusion Endo Reports no additional complaints Brody/Lymph Reports no additional complaints Physical Exam Vital Signs: Last Vital Signs Temp 98.0 F 01/20/25 09:41 Pulse 85 01/20/25 09:41 BP 102/50 L 01/20/25 09:41 Pulse Ox 96 01/20/25 09:41 Oxygen Delivery Method Room Air 01/20/25 09:41 BMI result Body Mass Index 24.6 Const General: cooperative, healthy appearing, comfortable, no acute distress, well developed, alert, awake and Physically active; No acute distress or confusion Nutritional Appearance: well nourished Orientation/consciousness: patient oriented x3 and No confusion Limitations: no limitations Eyes General: appearance normal, both eyes and all related structures Neck Neck: Yes normal visual inspection, Yes full ROM, Yes no meningeal signs, Yes trachea midline, Yes supple, No anterior neck swelling, No tender and No tracheal deviation Cardio Rate: regular rate Rhythm: regular rhythm Skin General skin exam: no rashes or lesions noted Neuro General: patient oriented x3, moves all extremities, Normal light touch and pain sensation, no meningeal signs and No confusion Cognition (Neuro): normal cognition Gait exam (Neuro): Normal gait present Motor exam (neuro): 5/5 motor strength present throughout (upper extremities bilaterally) Extrem Other: Pulp Operator strength equal bilaterally, ROM upper extremities intact bilaterally. Psych Appearance: grossly normal Mental Status: mental status grossly normal Insight: Good insight present (Psych) Judgement: Good judgement present (Psych) Results Reviewed Results Reviewed: Imaging of cervical spine is reviewed and there are no acute findings. Results of imaging reviewed with the patient. Assessment & Plan Assessment & Plan (1) Cervical spine pain: Comment: No acute findings noted on imaging of the C-spine. Physical therapy referral will be placed and patient is instructed to use Naprosyn only as needed. Code(s): M54.2 - Cervicalgia Plan: Physical therapy intake; Naprosyn OTC as needed for discomfort. Orders: Orders XR cervical spine 4V Today M54.2 - Cervicalgia PT Evaluation and Treatment Today M54.2 - Cervicalgia Coding Level of Care Code Est Pt Level 3 (49001) Diagnoses Cervical spine pain M54.2 Time Spent (min) 25
--- OUTSIDE RECORDS SUMMARY | 2025-01-20 10:09 | XMS_ITS | Clinical Summary ---
Author Organization [facility], Address [address]LOS [address] [place] [address] Phone Care Team Providers Care Improvement Intern Name Role Phone Leah Noriega MD Primary Care Provider [phone] Allergies Active Allergy Reactions Criticality Noted Date [...] 3b chronic kidney disease 11/17/2019 Hyperkalemia 11/17/2019 Encounters Date Type Department Care Team Description 12/29/2024 Documentation Only [facility], - [address] [place] [phone] Sharri Marin 12/16/2024 3:30 PM EDT Office Visit [facility] - [place] [address] Carlos [address] [place] [address] Carlos Cherry MD 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); 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; Essential (primary) hypertension 12/16/2024 Office Communication [facility], - Fritz [address] [place] [address] Carlos Cherry MD from Last 3 Months Immunizations Immunization Administration Dates Next Due Influenza [...] 09/05/2018 12:00 PM EDT Plan of Treatment Upcoming Encounters Date Type Department Care Team (Late st Contact Info) Description 06/23/2025 2:15 PM EST Office Visit [facility] [place] [address] [address] [place] [address] Carlos Cherry MD [address] [place] [address] [place] [address] Health Maintenance Due Date Last Done Comments Influenza Vaccine (#1) 2025 0, 02/26/2020, 02/20/2020, Additional history exists Pneumococcal Vaccine: 50+ Years Completed 09/07/2014, 07/23/2010 Pneumococcal Vaccine: Peds (0 to 5 Years) and At-Risk Patients (6 to 49 Years) Discontinued 09/07/2014, 07/23/2010 Hepatitis B Vaccine Aged Out No longe r eligible based on patient's age to complete this topic Insurance [employer] MCR Adv PPO ([id number]) Care Teams Improvement Intern Relationship Specialty Start Date End Date Leah Noriega MD [address] [place] [id number] PCP - General Internal Medicine 12/16/24
--- OUTSIDE RECORDS SUMMARY | 2025-01-20 10:09 | XMS_ITS | Encounter Summary ---
Author Organization [facility] Address [address] [place] [address] Phone Care Team Providers Care Stencil Maker Name Role Phone Leah Noriega MD Primary Care Provider [phone] Encounter Details Date Type Department Care Team (Late st Contact Info) Description 12/18/2023 Documentation Only [facility] [address] [place] [address] Sharri Marin [address] [place] [address] Social History Tobacco Use Types [...] as of this encounter Plan of Treatment Upcoming Encounters Date Type Department Care Team (Late st Contact Info) Description 06/23/2025 2:15 PM EST Office Visit [facility] [place] [facility] [place] [address] [address]no [facility] 1 [place] [address] Carlos Cherry MD [address] [facility] [place] [address] documented as of this encounter Visit Diagnoses Not on filedocumented in this encounter Care Teams Stencil Maker Relationship Specialty Start Date End Date Leah Noriega MD [address] [place], [place] [phone] PCP - General Internal Medicine 12/16/24 documented as of this encounter
--- OUTSIDE RECORDS SUMMARY | 2025-01-20 10:09 | XMS_ITS | Encounter Summary ---
Author Organization [facility] [place], Address [address] [place] [address] Phone Care Team Providers Care Health And Safety Tech Name Role Phone Leah Noriega MD Primary Care Provider Encounter Details Date Type Department Care Team (Late st Contact Info) Description 12/16/2024 Office Communication [facility] [place], - Fritz Rodriguez [address] [place] [phone] Carlos Cherry MD [address] [facility] [place] [address] Social History Tobacco Use Types [...] Visit [facility] [place] [facility] [place] [address] [address] [place] [address] Carlos Cherry MD [address] [facility] [place] [address] documented as of this encounter Visit Diagnoses Not on filedocumented in this encounter Care Teams Health And Safety Tech Relationship Specialty Start Date End Date Leah Noriega MD [address] [place], [place] [phone] PCP - General Internal Medicine 12/16/24 documented as of this encounter
--- OUTSIDE RECORDS SUMMARY | 2025-01-20 10:09 | XMS_ITS | Encounter Summary ---
Author Organization [facility] [place], Address [address] [place] [address] Phone Care Team Providers Care Armhole Raiser Lockstitch Name Role Phone Leah Noriega MD Primary Care Provider [phone] Encounter Details Date Type Department Care Team (Late st Contact Info) Description 12/29/2024 Documentation Only [facility] [place], - Fritz Rodriguez [address] [place] [phone] Sharri Marin [address] [place] [address] Social History Tobacco Use Types [...] Visit [facility] [place] [facility] [place] [address] [address] 1 [place] [address] Carlos Cherry MD [address] [facility] [place] [address] documented as of this encounter Visit Diagnoses Not on filedocumented in this encounter Care Teams Armhole Raiser Lockstitch Relationship Specialty Start Date End Date Leah Noriega MD [address] [place], [place] [phone] PCP - General Internal Medicine 12/16/24 documented as of this encounter
--- OUTSIDE RECORDS SUMMARY | 2025-01-20 10:09 | XMS_ITS | Encounter Summary ---
Author Organization [facility] Address [address] [place] [address] Phone Care Team Providers Care Commonwealth Attorney Name Role Phone Leah Noriega MD Primary Care Provider [phone] Encounter Details Date Type Department Care Team (Late st Contact Info) Description 12/05/2022 Documentation Only [facility] [address] [place] [address] Carlos Cherry MD [address] [place] [address] [place] [address] Social History Tobacco Use Types [...] Visit [facility] [place] - [address] [facility] 1 [place] [address] Carlos Cherry MD [address] [place] [address] [place] [address] documented as of this encounter Visit Diagnoses Not on filedocumented in this encounter Care Teams Commonwealth Attorney Relationship Specialty Start Date End Date Leah Noriega MD [address] [place] [address] PCP - General Internal Medicine 12/16/24 documented as of this encounter
== END 2025-01-20 10:56 | disposition home or self-care (01) ==
PROVIDERS: PCP Internal Medicine; Visit Provider Physician Assistant
DX: M54.2 Cervicalgia (principal)

== ENCOUNTER → 2025-01-20 10:04 | Outpatient (BNV) | payer MEDICARE, SELFPAY | PROVIDERS: PCP Internal Medicine; Visit Provider Radiology Diagnostic Radiology | DX: M47.812 Spondylosis without myelopathy or radiculopathy, cervical region (principal) | CPT/HCPCS: 72050 ==

== ENCOUNTER 2025-04-09 09:00 | Outpatient (RCR) | payer MEDICARE, SELFPAY ==
--- NOTE | 2025-02-11 09:44 | MHC.PT.EP ---
[facility] [place] [facility] [place] [facility] [place] [facility] [address] Mark Thompson [address] [phone] F: [phone] F: [phone] F: [phone] F: [phone] Physical Therapy Plan of Care Date of Evaluation: 02/10/25 Date of Surgery: Diagnosis: NECK PAIN (KP) Assessment: MATTHEW REPORTS INCREASE DISCOMFORT OVER THE LAST MONTH OR SO WITH MILD SYMPTOMS OF TENSION AND DISCOMFORT. HE REPORTS HE ATTEMPTED MASSAGE THERAPY WHICH WAS BENEFICIAL BUT THE MASSAGE THERAPIST FELT HE WOULD BENEFIT FROM FURTHER MEDICAL EVALUATION. HE REPORTS THAT WHEN HE WALKS HE IS UNABLE TO HOLD HIS HEAD UP AND NEEDS TO STOP WALKING IN ORDER TO RESUME NEUTRAL HEAD POSITIOING. SYMPTOMS ARE LESS PRONOUNCED IN SITTING. HE DENIES SIGNIFICANT PAIN, DENIES ALTERED SENSATION, DENIES RADICULAR SYMPTOMS. LIVES IN APARTMENT AT DTR's HOME. UPON EXAM IMPAIRMENTS INCLUDE DECREASED CROM AND STRENGTH, DECREASED UPPER BACK STRENGTH AND THOR ROTATION, ALTERED POSTURE AND INCREASED TISSUE TENSION. FUNCTIONAL LIMITATIONS INCLUDE DECREASED TOLERANCE TO LIFTING, PUSHING, PULLING AND WALKING. Frequency and Duration: The patient will be seen 2 X WEEK FOR 6 WEEKS Short Term Goals: INITIATE HEP AND PROMOTE SELF MANAGEMENT OF SYMPTOMS Mcfp Goals: Patient will demonstrate full, pain-free cervical range of motion in all planes within normal limits (WNL). Patient will return to all work or recreational activities (e.g., prolonged computer use, driving, lifting) without symptom exacerbation. Patient will demonstrate improved cervical and scapular muscle strength to at least 4+/5 on manual muscle testing to support postural stability. Patient will report no neck pain consistently over one week during all routine activities Patient will independently perform a prescribed home exercise program and demonstrate understanding of ergonomics and posture education with 100% accuracy. Patient will tolerate prolonged static and dynamic postures (e.g., walking x 10 mins) without neck pain or fatigue. Treatment Plan: Modalities to reduce pain, spasms and effusion. Manual therapy to restore motion and function. Therapeutic exercise to improve strength and flexibility. Neuromuscular re-education for posture and balance. Therapeutic activities to return to functional activities of daily living. Electronically signed by: ABE CELIS PT DPT Please sign and return to therapist. Thank you for your referral.
--- NOTE | 2025-05-25 12:26 | MHC.PT.DC ---
[facility] [place] [facility] [place] Office [place] Office [address] Mark Thompson [address] [phone] F: [phone] F: [phone] F: [phone] F: [phone] Physical Therapy Discharge Report Diagnosis: NECK PAIN (KP) Date of Surgery: Date of Evaluation: 02/10/25 Date of Discharge: 04/25/25 Treatments to Date: 12 Cancellations to Date: 0 No Shows to Date: 0 Discharge Status: Achieved Goals Improved Function Independent with HEP Discharge Summary: HAS PROGRESSED WELL IN THERAPY AND WILL BENEFIT FROM CONTINUED HEP AT HOME. Electronically signed by: Veronica Vinson PT DPT Please sign and return to therapist. Thank you for your referral.
== END 2025-05-25 12:25 | disposition home or self-care (01) ==
LOC: HO.PT 09:00
PROVIDERS: PCP Internal Medicine; Visit Provider Physician Assistant
DX: M54.2 Cervicalgia (principal)
CPT/HCPCS: 97110; 97112; 97140; 97162; 97535

== ENCOUNTER 2025-05-15 07:57 | Outpatient (REF) | payer MEDICARE, SELFPAY ==
--- OUTSIDE RECORDS SUMMARY | 2025-05-15 08:00 | XMS_ITS | Clinical Summary ---
Author Organization [facility], Address [address] [facility] 1 [place] [address] Phone Care Team Providers Care Travel Manager Name Role Phone Leah Noriega MD Primary Care Provider [phone] Allergies Active Allergy Reactions Criticality Noted Date [...] Visit [facility] [place] [facility] [place] [address] Carlos [address] [place] [address] Carlos Cherry MD [address] [place] [phone] Health Maintenance Due Date Last Done Comments Influenza Vaccine (#1) 2025 0, 02/26/2020, 02/20/2020, Additional history exists Pneumococcal Vaccine: 50+ Years Completed 09/07/2014, 07/23/2010 Pneumococcal Vaccine: Peds (0 to 5 Years) and At-Risk Patients (6 to 49 Years) Discontinued 09/07/2014, 07/23/2010 Hepatitis B Vaccine Aged Out No longe r eligible based on patient's age to complete this topic Insurance [employer] MCR Adv PPO ([id number]) Care Teams Travel Manager Relationship Specialty Start Date End Date Leah Noriega MD [address] [place] [address] PCP - General Internal Medicine 12/16/24
--- OUTSIDE RECORDS SUMMARY | 2025-05-15 08:00 | XMS_ITS | Encounter Summary ---
Author Organization [facility] Address [address] [place] [address] Phone Care Team Providers Care Turner Off Name Role Phone Leah Noriega MD Primary Care Provider [phone] Encounter Details Date Type Department Care Team (Late st Contact Info) Description 12/05/2022 Documentation Only [facility] [address] [place] [address] Carlos Cherry MD [address] [place] [address] [place] [address] Social History Tobacco Use Types [...] Visit [facility] [place] - [address] [facility] 1 [place] [address] Carlos Cherry MD [address] [place] [address] [place] [address] documented as of this encounter Visit Diagnoses Not on filedocumented in this encounter Care Teams Turner Off Relationship Specialty Start Date End Date Leah Noriega MD [address] [facility] [place] [address] PCP - General Internal Medicine 12/16/24 documented as of this encounter
--- OUTSIDE RECORDS SUMMARY | 2025-05-15 08:00 | XMS_ITS | Encounter Summary ---
Author Organization [facility] Address [address] [place] [address] Phone Care Team Providers Care Ice Cream Dipper Name Role Phone Leah Noriega MD Primary Care Provider Encounter Details Date Type Department Care Team (Late st Contact Info) Description 12/18/2023 Documentation Only [facility] [address] [place] [address] Sharri Marin [address] [place] [address] Social History Tobacco Use Types [...] Visit [facility] [place] [facility] [place] [address] [address] [facility] 1 [place] [address] Carlos Cherry MD [address] [facility] [place] [address] documented as of this encounter Visit Diagnoses Not on filedocumented in this encounter Care Teams Ice Cream Dipper Relationship Specialty Start Date End Date Leah Noriega MD [address] [place], [place] [phone] PCP - General Internal Medicine 12/16/24 documented as of this encounter
--- OUTSIDE RECORDS SUMMARY | 2025-05-15 08:00 | XMS_ITS | Encounter Summary ---
Author Organization [facility] [place], Address [address] [place] [address] Phone Care Team Providers Care Set Up And Lay Out Inspector Name Role Phone Leah Noriega MD Primary Care Provider [phone] Encounter Details Date Type Department Care Team (Late st Contact Info) Description 12/29/2024 Documentation Only [facility] [place], - Fritz Rodriguez [address] [place] [phone] Sharri Marin [address] [place] [address] Social History Tobacco Use Types [...] Visit [facility] [place] - [place] [address] [address] 1 [place] [address] Carlos Cherry MD [address] [facility] [place] [address] documented as of this encounter Visit Diagnoses Not on filedocumented in this encounter Care Teams Set Up And Lay Out Inspector Relationship Specialty Start Date End Date Leah Noriega MD [address] [place], [place] [phone] PCP - General Internal Medicine 12/16/24 documented as of this encounter
[2025-05-15 08:15] LABS: MANUAL DIFF FLAG NO
[2025-05-15 08:27] LABS: Hematocrit 42.9 % (42.0-52.0); Hemoglobin 14.3 g/dl (14.0-18.0); Imm Gran Abs Auto 0.02 X10*3/uL (0.00-0.03); Imm Gran Pct Auto 0.3 % (0.0-0.4); Lymphocytes Absolute Auto 2.4 X10*3/uL (1.2-4.9); Mean Corpuscular HGB Conc 33.3 g/dl (31.0-36.0); Mean Corpuscular Hemoglobin 32.6 pg (27.0-33.0); Mean Corpuscular Volume 97.7 fL (80.0-98.0); NRBC Abs Auto 0.000 X10*3/uL (0.0-0.012); NRBC Pct Auto 0.0 /100WBC (0.0-0.2); Platelet Count 316 X10*3/uL (160-400); Red Blood Count 4.39 X10*6/uL (4.60-5.80); White Blood Count 7.2 X10*3/uL (4.8-10.8)
[2025-05-15 09:30] LABS: Alanine Aminotransferase 11 U/L (0-40); Albumin Level 4.2 g/dL (3.5-5.0); Alkaline Phosphatase 60 U/L (39-117); Anion Gap 13 (12-20); Aspartate Amino Transferase 25 U/L (5-37); Blood Urea Nitrogen 24 mg/dL (9-16); Calcium 9.4 mg/dL (8.4-10.2); Carbon Dioxide 25 mmol/L (22-29); Chloride 108 mmol/L (96-108); Estimated Glomerular Filt Rate 31; Potassium 5.4 mmol/L (3.3-5.1); Sodium 141 mmol/L (135-145); Total Protein 6.9 g/dL (6.5-8.0)
[2025-05-15 09:48] LABS: Free T4 (Free Thyroxine) 0.85 ng/dL (0.71-1.85); Thyroid Stimulating Hormone 2.26 uIU/mL (0.32-4.0)
== END 2025-05-15 07:58 | disposition home or self-care (01) ==
LOC: HO.LAB 07:57
PROVIDERS: PCP Internal Medicine; Visit Provider Internal Medicine
DX: I49.3 Ventricular premature depolarization (principal); R51.9 Headache, unspecified; N18.9 Chronic kidney disease, unspecified; D63.1 Anemia in chronic kidney disease; E78.00 Pure hypercholesterolemia, unspecified
CPT/HCPCS: 36415; 80053; 83721; 84439; 84443; 85025